=== PATIENT | female | born 1995 | race Caucasian/White ===

== ENCOUNTER 2017-03-21 09:36 | Emergency (ER) | payer MEDICAID ==
[2017-03-21 09:48] VITALS: TEMP 97.6; O2SAT 100; BMI 20.8
--- NOTE | 2017-03-21 10:35 | C.PDOC ---
History Of Present Illness 21 y/o female presents to ED with complaints of abdominal pain with associated nausea and vomiting. Patient states she took home test that was positive. Patient reports no vaginal bleeding, but she had intercourse last night and felt discomfort during. Denies dysuria, back pain, fever or any other complaints at this time. LMP x1 month ago as per patient Time Seen by Provider: 03/21/17 10:03 Chief Complaint (Nursing): Abdominal Pain History Per: Patient History/Exam Limitations: no limitations Onset/Duration Of Symptoms: Days Current Symptoms Are (Timing): Still Present Abnormal Vaginal Bleeding: No Past Medical History Reviewed: Historical Data, Nursing Documentation, Vital Signs Vital Signs: Last Vital Signs Temp 97.6 F 03/21/17 09:47 Pulse 99 H 03/21/17 11:26 Resp 16 03/21/17 11:26 BP 112/76 03/21/17 11:26 Pulse Ox 100 03/21/17 16:17 - Medical History PMH: No Chronic Diseases Surgical History: No Surg Hx Family History: States: No Known Family Hx - Social History Hx Tobacco Use: No Hx Alcohol Use: No Hx Substance Use: No - Immunization History Hx Tetanus Toxoid Vaccination: No Hx Influenza Vaccination: No Hx Pneumococcal Vaccination: No Review Of Systems Constitutional: Negative for: Fever, Chills Respiratory: Negative for: Cough, Shortness of Breath Gastrointestinal: Positive for: Nausea, Vomiting Genitourinary: Negative for: Dysuria, Hematuria, Vaginal Bleeding, Pelvic Pain Musculoskeletal: Negative for: Back Pain Skin: Negative for: Rash Neurological: Negative for: Headache, Dizziness Physical Exam - Physical Exam Appears: Non-toxic, No Acute Distress Skin: Warm, Dry, No Rash Head: Atraumatic, Normacephalic Eye(s): bilateral: Normal Inspection, EOMI Oral Mucosa: Moist Neck: Normal ROM, Supple Cardiovascular: Rhythm Regular Respiratory: Normal Breath Sounds, No Rales, No Rhonchi, No Wheezing Gastrointestinal/Abdominal: Bowel Sounds (active), Soft, No Tenderness, No Distention, No Guarding, No Rebound Back: No CVA Tenderness Pelvic: Normal External Exam, Normal Speculum Exam, No Vaginal Bleeding, No Vaginal Discharge, No Cervical Motion Tenderness, No Cervix Open, No Mass Extremity: Normal ROM, No Tenderness, No Deformity, No Swelling Neurological/Psych: Oriented x3, Normal Speech Gait: Steady ED Course And Treatment O2 Sat by Pulse Oximetry: 100 (RA) Pulse Ox Interpretation: Normal Medical Decision Making Medical Decision Making: Plan:UA, Tylenol Progress: UA shows positive . pelvic exam performed, no bleeding, no CMT and cervix closed. Patient advised to follow up with her extruder for further evaluation. Instructed to return to ED for any vaginal bleeding or pelvic pain. 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 - Scribe Statement The provider has reviewed the documentation as recorded by the Michelleibhéctor Villar All medical record entries made by the Michelleibhéctor were at my direction and personally dictated by me. I have reviewed the chart and agree that the record accurately reflects my personal performance of the history, physical exam, medical decision making, and the department course for this patient. I have also personally directed, reviewed, and agree with the discharge instructions and disposition.
[2017-03-21 11:04] LABS: RBC URINE < 1 /hpf (0-3); URINE BILIRUBIN NEGATIVE (NEGATIVE); URINE BLOOD NEGATIVE (NEGATIVE); URINE COLOR Yellow (YELLOW); URINE GLUCOSE (UA) NORMAL (Normal); URINE KETONE NEGATIVE (NEGATIVE); URINE LEUKOCYTE ESTERASE NEG Leu/uL (Negative); URINE PROTEIN NEGATIVE (NEGATIVE); URINE UROBILINOGEN NORMAL mg/dL (0.2-1.0); WBC URINE 1 /hpf (0-5)
[2017-03-21 11:26] VITALS: BP 112/76; PULSE 99; RESP 16
== END 2017-03-21 11:27 | disposition home or self-care (01) ==
LOC: C.ER 09:36
DX: Z32.01 Encounter for pregnancy test, result positive (principal)